=== PATIENT | female | born 1985 | race Caucasian/White ===

== ENCOUNTER 2018-05-29 21:58 | Inpatient (IN) ==
[2018-05-29 22:34] LABS: Bilirubin,Urine Negative (Negative); Blood,Urine Negative (Negative); Color,Urine Yellow (Yellow); Glucose,Urine (UA) Normal (Normal); Ketones,Urine Negative (Negative); Leukocyte Esterase,Urine Negative (Negative); Nitrite,Urine Negative (Negative); Protein,Urine Negative (Neg-Trace); Urobilinogen,Urine Normal (Normal)
[2018-05-29 22:35] LABS: Bacteria,Urine Few per hpf (None-Few); Hyaline Casts,Urine None Seen per lpf (None-Few); RBC,Urine 15-30 per hpf (0-3); Squamous Epithelial Cell,Urine Many per lpf (None-Few)
[2018-05-29 22:37] LABS: Clarity,Urine Hazy (Clear)
[2018-05-29 22:44] LABS: Basophils % 0.4 %; Eosinophils # 0.3 K/mcL (0.0-0.6); Eosinophils % 3.6 %; Hematocrit 39.3 % (35.3-44.9); Hemoglobin 13.1 g/dL (11.5-15.4); Immature Granulocytes % 0.8 % (0-4); Lymphocytes # 2.1 K/mcL (0.6-4.6); Lymphocytes % 23.4 %; Mean Corpuscular HGB Conc 33.3 g/dL (31.6-35.5); Mean Corpuscular Hemoglobin 28.2 pg (28.0-33.3); Mean Corpuscular Volume 84.7 fL (83.0-100.0); Mean Platelet Volume 11.2 fL (9.4-12.4); Monocytes # 0.4 K/mcL (0.0-1.3); Monocytes % 4.6 %; Platelet Count 273 K/mcL (140-400); Red Blood Count 4.64 M/mcL (3.82-4.97); Red Cell Distribution Width 13.4 % (11.5-14.5); Segmented Neutrophils % 67.2 %
[2018-05-29 22:44] LABS: Amphetamine Screen,Urine Negative ng/mL (Cutoff=1000); Barbiturate Screen,Urine Negative ng/mL (Cutoff=200); Benzodiazepines Screen,Urine Negative ng/mL (Cutoff=200); Cannabinoid Screen,Urine Negative ng/mL (Cutoff = 50); Cocaine Screen,Urine Negative ng/mL (Cutoff= 300); Opiate Screen,Urine Negative ng/mL (Cutoff=300); Phencyclidine Screen,Urine Negative ng/mL (Cutoff=25)
--- NOTE | 2018-05-29 22:47 | Emergency Department Note ---
Disposition Clinical Impression: Depression Disposition: Still a Patient Referrals: NONE,PCP [Primary Care Provider] - Forms: ED Satisfaction Letter Time of Disposition: 00:38 General Adult HPI - General Chief complaint: ED Psychiatric Symptoms Stated complaint: si Time Seen by Provider: 05/29/18 22:21 Source: patient Limitations: no limitations Nursing Notes Reviewed: Yes Vital Signs Reviewed: Yes - History of Present Illness HPI Narrative: Patient presents to the emergency department with a chief complaint of suicidal thoughts. Depression. She is accompanied by her . States she is "just sad." Suicidal thoughts. When I asked her what her plan was she states she was going to strain herself with the call light. History of depression but she has never been seen here. Patient states she was doing well on Prozac but does not feel like it is working anymore. Pain Scale: 0 - Related Data Home Medications Medication Instructions Recorded Confirmed Diclofenac Sodium [Voltaren] 50 mg PO Q8HR PRN 05/02/17 05/02/17 FLUoxetine HCl [Prozac] 60 mg PO DAILY 05/02/17 05/02/17 Levothyroxine Sodium [Levo-T] 200 mcg PO 0630 05/02/17 05/02/17 Metoprolol XL (24 HR) Succ [Toprol 50 mg PO DAILY 05/02/17 05/02/17 XL] clonazePAM [Klonopin] 0.5 mg PO TID 05/02/17 05/02/17 Previous Rx's Medication Instructions Recorded HYDROcodone/Acet 10/325 mg [[place] 1 tab PO Q6HR PRN #28 tab 05/02/17 10-325 mg] Oxycodone HCl/Acetaminophen 1 each PO Q6HR #28 tablet 05/02/17 [Percocet 10-325 mg Tablet] Rivaroxaban [Xarelto] 10 mg PO DAILY #21 tablet 05/02/17 Azithromycin [Zithromax] 0 tab PO DAILY #6 tablet 06/01/17 levoFLOXacin [Levofloxacin] 750 mg PO DAILY 7 Days tablet 06/02/17 Allergies Allergy/AdvReac Type Severity Reaction Status Date / Time Penicillins [PCN] Allergy See Verified 05/29/18 22:07 Comments All systems ED: reviewed and negative except as stated. Constitutional: Denies: fever Cardiovascular: Denies: chest pain Gastrointestinal: Denies: abdominal pain, nausea, vomiting Past Medical History - Past Medical History Attestation: Yes The following information was validated with the patient. Source: patient Medical history: Reports: hypertension Psychiatric history: Reports: anxiety, depression - Social History Smoking Status: Current every day smoker Smokeless Tobacco Status: No Alcohol use: Reports: occasionally Drug use: Reports: none Physical Exam Patient awake and alert sitting up in bed tearful. - General Limitations: no limitations General appearance: alert, in no apparent distress - Head Head exam: atraumatic, normocephalic - Eye Eye exam: Present: normal appearance - ENT ENT exam: normal exam, normal oropharynx - Neck Neck exam: Present: normal inspection - Chest Chest inspection: Present: normal inspection - Respiratory Respiratory exam: Present: normal lung sounds bilaterally - Cardiovascular Cardiovascular exam: Present: regular rate, normal rhythm, normal heart sounds - Abdominal Exam Abdominal exam: Present: soft - Neurological Exam Neurological exam: Present: alert, oriented X3, CN II-XII intact - Psychiatric Psychiatric exam: Present: depressed, suicidal ideation - Skin Skin exam: Present: warm, dry Course Course Narrative: Medical clearance and evaluation by 1A. 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 Time: 00:04 Vital Signs Temperature 97.8 F 05/29/18 22:02 Pulse Rate 99 05/29/18 22:02 Respiratory Rate 20 05/29/18 22:02 Blood Pressure 145/103 05/29/18 22:02 O2 Sat by Pulse Oximetry 99 05/29/18 22:02 Temperature 97.8 F 05/29/18 22:02 Pulse Rate 99 05/29/18 22:02 Respiratory Rate 20 05/29/18 22:02 Blood Pressure 145/103 05/29/18 22:02 O2 Sat by Pulse Oximetry 99 05/29/18 22:02 Oxygen Delivery Oxygen Delivery Room Air Medical Decision Making - [facility] Narrative Medical decision making narrative: 00 34 hours: Patient was signed out to me by Dr. Laura See, patient's been depressed feels like her medications are not working. Never been hospitalized. She seen 1A now and then we will disposition once they are evaluation is complete. - Lab Data Result diagrams: 05/29/18 22:29 05/29/18 22:29 Lab Results 10/30/18 10/30/18 10/30/18 Range/Units 22:17 22:17 22:17 WBC (4.3-11.1) K/mcL RBC (3.82-4.97) M/mcL Hgb (11.5-15.4) g/dL Hct (35.3-44.9) % MCV (83.0-100.0) fL MCH (28.0-33.3) pg MCHC (31.6-35.5) g/dL RDW (11.5-14.5) % Plt Count (140-400) K/mcL MPV (9.4-12.4) fL Immature Gran % (0-4) % Seg Neutrophils % % Lymphocytes % % Monocytes % % Eosinophils % % Basophils % % Neutrophils # (1.6-8.9) K/mcL Lymphocytes # (0.6-4.6) K/mcL Monocytes # (0.0-1.3) K/mcL Eosinophils # (0.0-0.6) K/mcL Basophils # (0.0-0.2) K/mcL Sodium (136-145) mEq/L Potassium (3.5-5.1) mEq/L Chloride (98-107) mEq/L Carbon Dioxide (23-29) mEq/L BUN (6-20) mg/dL Creatinine (0.60-1.20) mg/dL Est GFR ( Amer) (> 60) Est GFR (Non-Af Amer) (> 60) BUN/Creatinine Ratio (6-26) Glucose (70-105) mg/dL Calculated Osmolality (280-300) Calcium (8.6-10.3) mg/dL TSH (0.340-5.600) mcIU/mL Urine Color Yellow (Yellow) Urine Clarity Hazy A (Clear) Urine pH 6.0 (5.0-8.0) pH Units Ur Specific [place] 1.010 (1.010-1.025) Urine Protein Negative (Neg-Trace) mg/dL Urine Glucose (UA) Normal (Normal) mg/dL Urine Ketones Negative (Negative) mg/dL Urine Blood Negative (Negative) Urine Nitrite Negative (Negative) Urine Bilirubin Negative (Negative) Urine Urobilinogen Normal (Normal) mg/dL Ur Leukocyte Esterase Negative (Negative) Urine Microscopic RBC 15-30 H (0-3) per hpf Ur Squamous Epith Cells Many H (None-Few) per lpf Urine Bacteria Few (None-Few) per hpf Hyaline Casts None Seen (None-Few) per lpf Urine Test Negative (Negative) Salicylates (15.0-30.0) mg/dL Urine Opiates Screen Negative (Ccrkte=044) ng/mL Acetaminophen (10-20) mcg/mL Ur Barbiturates Screen Negative (Wsptre=962) ng/mL Ur Phencyclidine Scrn Negative (Cutoff=25) ng/mL Ur Amphetamines Screen Negative (Mhmban=7924) ng/mL U Benzodiazepines Scrn Negative (Hcygzn=619) ng/mL Urine Cocaine Screen Negative (Cutoff= 300) ng/mL U Marijuana (THC) Screen Negative (Cutoff = 50) ng/mL Ur Drug Screen Interp See Below Ethyl Alcohol (Less than 10) mg/dL 05/29/18 05/29/18 05/29/18 Range/Units 22:29 22:29 22:29 WBC 9.0 (4.3-11.1) K/mcL RBC 4.64 (3.82-4.97) M/mcL Hgb 13.1 (11.5-15.4) g/dL Hct 39.3 (35.3-44.9) % MCV 84.7 (83.0-100.0) fL MCH 28.2 (28.0-33.3) pg MCHC 33.3 (31.6-35.5) g/dL RDW 13.4 (11.5-14.5) % Plt Count 273 (140-400) K/mcL MPV 11.2 (9.4-12.4) fL Immature Gran % 0.8 (0-4) % Seg Neutrophils % 67.2 % Lymphocytes % 23.4 % Monocytes % 4.6 % Eosinophils % 3.6 % Basophils % 0.4 % Neutrophils # 6.0 (1.6-8.9) K/mcL Lymphocytes # 2.1 (0.6-4.6) K/mcL Monocytes # 0.4 (0.0-1.3) K/mcL Eosinophils # 0.3 (0.0-0.6) K/mcL Basophils # 0.0 (0.0-0.2) K/mcL Sodium 135 L (136-145) mEq/L Potassium 3.7 (3.5-5.1) mEq/L Chloride 106 (98-107) mEq/L Carbon Dioxide 21 L (23-29) mEq/L BUN 7 (6-20) mg/dL Creatinine 0.64 (0.60-1.20) mg/dL Est GFR ( Amer) > 60 (> 60) Est GFR (Non-Af Amer) > 60 (> 60) BUN/Creatinine Ratio 11 (6-26) Glucose 106 H (70-105) mg/dL Calculated Osmolality 278 L (280-300) Calcium 9.2 (8.6-10.3) mg/dL TSH 4.846 (0.340-5.600) mcIU/mL Urine Color (Yellow) Urine Clarity (Clear) Urine pH (5.0-8.0) pH Units Ur Specific [place] (1.010-1.025) Urine Protein (Neg-Trace) mg/dL Urine Glucose (UA) (Normal) mg/dL Urine Ketones (Negative) mg/dL Urine Blood (Negative) Urine Nitrite (Negative) Urine Bilirubin (Negative) Urine Urobilinogen (Normal) mg/dL Ur Leukocyte Esterase (Negative) Urine Microscopic RBC (0-3) per hpf Ur Squamous Epith Cells (None-Few) per lpf Urine Bacteria (None-Few) per hpf Hyaline Casts (None-Few) per lpf Urine Test (Negative) Salicylates < 2.5 L (15.0-30.0) mg/dL Urine Opiates Screen (Dbupwc=742) ng/mL Acetaminophen < 10 L (10-20) mcg/mL Ur Barbiturates Screen (Clzkkj=289) ng/mL Ur Phencyclidine Scrn (Cutoff=25) ng/mL Ur Amphetamines Screen (Coyjxx=3591) ng/mL U Benzodiazepines Scrn (Cheoru=488) ng/mL Urine Cocaine Screen (Cutoff= 300) ng/mL U Marijuana (THC) Screen (Cutoff = 50) ng/mL Ur Drug Screen Interp Ethyl Alcohol < 10 (Less than 10) mg/dL
[2018-05-29 23:04] LABS: Acetaminophen < 10 mcg/mL (10-20); BUN/Creatinine Ratio 11 (6-26); Blood Urea Nitrogen 7 mg/dL (6-20); Calcium 9.2 mg/dL (8.6-10.3); Carbon Dioxide 21 mEq/L (23-29); Chloride 106 mEq/L (98-107); Ethanol < 10 mg/dL (Less than 10); Glucose 106 mg/dL (70-105); Osmolality,Calculated 278 (280-300); Potassium 3.7 mEq/L (3.5-5.1); Salicylate < 2.5 mg/dL (15.0-30.0); Sodium 135 mEq/L (136-145); eGFR For Non-African Americans > 60 (> 60)
[2018-05-30] MEDS ORDERED: traZODone 50 MG TABLET PO PRN (00:51)
[2018-05-30] MEDS ORDERED: Mag Hydrox/Al Hydrox/Simeth 30 ML UDC PO PRN (00:51)
[2018-05-30] MEDS ORDERED: MOM Conc 10 ML UD.LIQ PO PRN (00:51)
[2018-05-30] MEDS ORDERED: hydrOXYzine pamoate 25 MG CAPSULE PO PRN (00:51)
[2018-05-30] MEDS ORDERED: *HR* LORazepam 1 MG TABLET PO PRN (00:51)
[2018-05-30] MEDS ORDERED: Haloperidol Lactate 5 MG/ML VIAL IM PRN (00:51)
[2018-05-30] MEDS ORDERED: *HR* LORazepam 2 MG/ML VIAL IM PRN (00:51)
[2018-05-30] MEDS: Nicotine 21 MG PATCH.TD24 TD SCH (08:48)
--- NOTE | 2018-05-30 12:13 | Psychiatry History & Physical ---
Date of Encounter: 05/30/18 Time of Encounter: 11:20 History of Present Illness Medicare Admission Attestation: For traditional Medicare patients the provided hospital inpatient services are reasonable and necessary and in the case of services not specified as inpatient-only under 42 CFR 419.22 (n), that they are appropriately provided as inpatient services in accordance 42 CFR 412.3. For Critical Access Hospital the patient may reasonably be expected to be discharged or transferred to a hospital within 96 hours after admission to the Critical Access Hospital. Admitted From: Home Plans for Post Hospital Care: Home History of Present Illness: Pt is a 32 yo, , female, marriedx1, with 3 children (17,12,5)who presents for mood and depression to the emergency department. Pt noted thoughts that she wants to kill myself, Pt noted she felt safe and comfortable on the unit. Pt was in agreement with treatment plan. Pt noted that she is doing better today. Pt noted she slept 8-10 hours last night. Pt noted her appetite is reduced. Pt rated her depression a 10, on a scale of zero to ten with ten being the worst and zero being none. Pt rate her anxiety a 7, on the same scale. Pt denied any current visual or auditory hallucinations. Pt denied any thoughts to harm herself or anyone else. Pt noted she has her own home in [place], [place]. Pt noted that her highest level of education is Associates in Nursing. 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 Pt denied any previous inpt psychiatric hospitalizations. Pt denid any previous suicide attempts. Pt noted her mother completed suicide 5 Young's ago. PT noted her brother and fathaer have mood D/O or Bipolar D/O. PT agreed to start abilify 5 mg for medication management of Depression. Pt was educated on the risks benefits and side-effects of these medications including no medication, pt was in agreement. Pt denied any hx of TBI, Hep C, HIV or seizures. 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 5.Supportive therapy was provided 6.Pt encouraged to consider group or individual therapy 7.Pt was in agreement with treatment plan. 8.Pt was educated on the risks benefits and side effects of current medications. Past Med Surg Social Fam HX - Past Medical History Medical history: hypertension, thyroid disease - Past Psychiatric History Psychiatric history: Reports: depression Family psychiatric history: Yes Family History of Suicide: Completed (Mother) - Social History Smoking Status: Current every day smoker Smokeless Tobacco Status: No Alcohol use: occasionally Drug use: none Medications & Allergies Diclofenac Sodium [Voltaren] 50 mg PO Q8HR PRN 05/02/17 [History] FLUoxetine HCl [Prozac] 60 mg PO DAILY 05/02/17 [History] Metoprolol XL (24 HR) Succ [Toprol XL] 50 mg PO DAILY 05/02/17 [History] Rivaroxaban [Xarelto] 10 mg PO DAILY #21 tablet 05/02/17 [Rx] clonazePAM [Klonopin] 0.5 mg PO TID 05/02/17 [History] Levothyroxine [Synthroid] 150 mcg PO DAILY 05/30/18 [History] Allergy/AdvReac Type Severity Reaction Status Date / Time Penicillins [PCN] Allergy See Verified 05/29/18 22:07 Comments Review of Systems Constitutional: Denies: fever, chills, weakness, weight change Eyes: Denies: eye pain, vision change Ears, Nose, Throat: Denies: ear pain, throat pain, dental pain, hearing loss, congestion Cardiovascular: Denies: chest pain, palpitations, dyspnea on exertion Respiratory: Denies: cough, dyspnea, wheezes Gastrointestinal: Denies: abdominal pain, nausea, vomiting, diarrhea, constipation Genitourinary female: Denies: urgency, dysuria, frequency, abnormal menses, dyspareunia Musculoskeletal: Denies: joint swelling, joint pain Integumentary: Denies: rash, lesions, pruritus Neurological: Denies: headache, weakness, numbness, memory loss Psychiatric: Reports: depression, suicidal ideation Endocrine: Denies: fatigue, heat or cold intolerance Hematologic/Lymphatic: Denies: easy bruising, lymphadenopathy Allergic/Immunologic: Denies: urticaria, itchy eyes Exam - HEENT Head exam IM: Present: atraumatic Eye exam IM: Present: EOMI, normal appearance, PERRL ENT exam IM: Present: normal exam - Neurological Neurological exam: Present: CN II-XII intact - Respiratory Respiratory exam IM: Present: CTAB - GI/Abdominal GI/Abdominal exam IM: Present: normal bowel sounds, soft. Absent: tenderness - Extremities Extremities exam IM: Present: full ROM - Skin Skin exam IM: Present: dry, warm - Constitutional Vitals: Temp Pulse Resp BP Pulse Ox 96.7 F L 101 14 154/120 100 05/30/18 09:00 05/30/18 09:00 05/30/18 09:00 05/30/18 09:00 05/30/18 09:00 General appearance: age & developmentally appropriate, well-groomed, well- nourished - Musculoskeletal Gait: normal Station: relaxed Strength & Tone: normal for patient - Psychiatric Patient Orientation: Yes Person, Yes Time, Yes Place Level of alertness: Alert Behavior: calm, cooperative Psychomotor activity: Normal Eye Contact: Maintains Eye Contact Mood Description: Depressed Affect description: congruent with mood, dysphoric Speech Volume: Normal Speech pattern: normal rate, normal rhythm, normal tone, fluent, spontaneous Language & Vocabulary: consistent with education Thought Process: Linear, Goal Oriented Thought Content: Yes Suicidal ideation, No Homicidal ideation, No Overt delusions Perceptual Disturbances: No Auditory hallucinations, No Visual hallucinations Attention Span Ability: Capable of Focused Attention Memory Description: Grossly Intact Patient Reliability: Reliable Historian Fund of knowledge: Yes abstraction ability, Yes average, Yes aware of current events Intelligence Estimate: Average Judgment: Limited Insight: Partial Results - Drug Levels and Toxicology Drug Levels and Toxicology: Drug Levels and Toxicity 05/29/18 05/29/18 22:17 22:29 Urine Opiates Screen Negative Acetaminophen < 10 L Ur Barbiturates Screen Negative Ur Phencyclidine Scrn Negative Ur Amphetamines Screen Negative U Benzodiazepines Scrn Negative Urine Cocaine Screen Negative U Marijuana (THC) Screen Negative Ethyl Alcohol < 10 - Labs Labs: Laboratory Last Values WBC 9.0 K/mcL (4.3-11.1) 05/29/18 22:29 RBC 4.64 M/mcL (3.82-4.97) 05/29/18 22:29 Hgb 13.1 g/dL (11.5-15.4) 05/29/18 22:29 Hct 39.3 % (35.3-44.9) 05/29/18 22:29 MCV 84.7 fL (83.0-100.0) 05/29/18 22: MCH 28.2 pg (28.0-33.3) 05/29/18: MCHC 33.3 g/dL (31.6-35.5) 05/29/18 22: RDW 13.4 % (11.5-14.5) 05/29/18 22: Plt Count 273 K/mcL (140-400) 05/29/18 22: MPV 11.2 fL (9.4-12.4) 05/29/18: Immature Gran % 0.8 % (0-4) 05/29/18: Seg Neutrophils % 67.2 % 05/29/18: Lymphocytes % 23.4 % 05/29/18: Monocytes % 4.6 % 05/29/18 22: Eosinophils % 3.6 % 05/29/18: Basophils % 0.4 % 05/29/18: Neutrophils # 6.0 K/mcL (1.6-8.9) 05/29/18 22: Lymphocytes # 2.1 K/mcL (0.6-4.6) 05/29/18 22: Monocytes # 0.4 K/mcL (0.0-1.3) 05/29/18: Eosinophils # 0.3 K/mcL (0.0-0.6) 05/29/18 22: Basophils # 0.0 K/mcL (0.0-0.2) 05/29/18 22: Sodium 135 mEq/L (136-145) L 05/29/18 22: Potassium 3.7 mEq/L (3.5-5.1) 05/29/18 22: Chloride 106 mEq/L (98-107) 05/29/18 22: Carbon Dioxide 21 mEq/L (23-29) L 05/29/18 22: BUN 7 mg/dL (6-20) 05/29/18 22: Creatinine 0.64 mg/dL (0.60-1.20) 05/29/18 22:29 Est GFR ( Amer) > 60 (> 60) 05/29/18 22:29 Est GFR (Non-Af Amer) > 60 (> 60) 05/29/18 22:29 BUN/Creatinine Ratio 11 (6-26) 05/29/18 22:29 Glucose 106 mg/dL (70-105) H 05/29/18 22:29 Calculated Osmolality 278 (280-300) L 05/29/18 22:29 Calcium 9.2 mg/dL (8.6-10.3) 05/29/18 22:29 TSH 4.846 mcIU/mL (0.340-5.600) 05/29/18 22: Urine Color Yellow (Yellow) 05/29/18 22:17 Urine Clarity Hazy (Clear) A 05/29/18 22: Urine pH 6.0 pH Units (5.0-8.0) 05/29/18: Ur Specific [place] 1.010 (1.010-1.025) 05/29/18 22: Urine Protein Negative mg/dL (Neg-Trace) 05/29/18 22:17 Urine Glucose (UA) Normal mg/dL (Normal) 05/29/18 22:17 Urine Ketones Negative mg/dL (Negative) 05/29/18 22:17 Urine Blood Negative (Negative) 05/29/18 22:17 Urine Nitrite Negative (Negative) 05/29/18 22:17 Urine Bilirubin Negative (Negative) 05/29/18: Urine Urobilinogen Normal mg/dL (Normal) 05/29/18 22:17 Ur Leukocyte Esterase Negative (Negative) 05/29/18 22:17 Urine Microscopic RBC 15-30 per hpf (0-3) H 05/29/18 22:17 Ur Squamous Epith Cells Many per lpf (None-Few) H 05/29/18 22:17 Urine Bacteria Few per hpf (None-Few) 05/29/18 22:17 Hyaline Casts None Seen per lpf (None-Few) 05/29/18 22:17 Urine Test Negative (Negative) 05/29/18 22:17 Salicylates < 2.5 mg/dL (15.0-30.0) L 05/29/18 22:29 Urine Opiates Screen Negative ng/mL (Tphqdw=486) 05/29/18 22:17 Acetaminophen < 10 mcg/mL (10-20) L 05/29/18 22:29 Ur Barbiturates Screen Negative ng/mL (Hiizok=589) 05/29/18 22:17 Ur Phencyclidine Scrn Negative ng/mL (Cutoff=25) 05/29/18 22:17 Ur Amphetamines Screen Negative ng/mL (Quivfg=4554) 05/29/18 22:17 U Benzodiazepines Scrn Negative ng/mL (Woblul=779) 05/29/18 22:17 Urine Cocaine Screen Negative ng/mL (Cutoff= 300) 05/29/18 22:17 U Marijuana (THC) Screen Negative ng/mL (Cutoff = 50) 05/29/18 22:17 Ur Drug Screen Interp See Below 05/29/18 22:17 Ethyl Alcohol < 10 mg/dL (Less than 10) 05/29/18 22:29 Assessment and Plan (1) Suicidal ideation Current visit: Yes Status: Acute Plan: Admit inpatient for safety and stabilization Risks, benefits, side effects, alternatives discussed w/pt: Yes Patient agreeable to treatment: Yes Plans for Post Hospital Care: at Medical Facility (2) Depression Current visit: Yes Status: Acute Plan: Admit inpatient for safety and stabilization Risks, benefits, side effects, alternatives discussed w/pt: Yes Patient agreeable to treatment: Yes Plans for Post Hospital Care: at Home Qualifiers: Depression Type: major depressive disorder Major depression recurrence: single episode Active/Remission status: currently active Major depression episode severity: severe Psychotic features: without psychotic features Qualified Code(s): F32.2 - Major depressive disorder, single episode, severe without psychotic features
[2018-05-30] MEDS: Metoprolol XL (24 HR) Succ 50 MG TAB.ER.24H PO SCH (13:07)
[2018-05-30] MEDS: clonazePAM 0.5 MG TABLET PO PRN ×2 (13:47→20:22)
[2018-05-30] MEDS ORDERED: clonazePAM 0.5 MG TABLET PO SCH (15:00)
[2018-05-30] MEDS ORDERED: ARIPiprazole 5 MG TABLET PO SCH (21:00)
[2018-05-31] MEDS: clonazePAM 0.5 MG TABLET PO PRN ×3 (04:04→20:14)
[2018-05-31] MEDS: Ibuprofen 400 MG TABLET PO PRN ×3 (04:06→16:47)
[2018-05-31] MEDS: FLUoxetine 20 MG CAPSULE PO SCH (08:32)
[2018-05-31] MEDS: Nicotine 21 MG PATCH.TD24 TD SCH (08:32)
[2018-05-31] MEDS: Metoprolol XL (24 HR) Succ 50 MG TAB.ER.24H PO SCH (08:32)
--- NOTE | 2018-05-31 11:03 | Psychiatry Progress Note ---
Date of Encounter: 05/31/18 Time of Encounter: 10:45 Subjective Interval history: Pt is a 32 yo, , female, marriedx1, with 3 children (17,12,5)who presents for mood and depression to the emergency department. Pt noted thoughts that she wants to kill myself, upon admission Pt noted she felt safe and comfortable on the unit. Pt was in agreement with treatment plan. Pt encouraged to participate in group and individual therapy. Pt noted that she is doing better today. Pt noted she slept 8-10 hours last night. Pt noted her appetite is reduced. Pt rated her depression a 6, on a scale of zero to ten with ten being the worst and zero being none. Pt rate her anxiety a 8, on the same scale. Pt denied any current visual or auditory hallucinations. Pt denied any thoughts to harm herself or anyone else. Pt denied any hx of TBI, Hep C, HIV or seizures. No TD noted, AIMS=0 1.Interval hx 2.Continue current medications 3.Review current labs 4.Pt had an opportunity to ask questions and discuss current treatment plan. 5.Supportive therapy was provided 6.Pt encouraged to consider group or individual therapy 7.Pt was in agreement with treatment plan. 8.Pt was educated on the risks benefits and side effects of current medications. 9. PT agreed to increase abilify to 5 mg PO QHS for mood. Review of Systems Constitutional: Denies: fever, chills, weakness, weight change Eyes: Denies: eye pain, vision change Ears, Nose, Throat: Denies: ear pain, throat pain, dental pain, hearing loss, congestion Cardiovascular: Denies: chest pain, palpitations, dyspnea on exertion Respiratory: Denies: cough, dyspnea, wheezes Gastrointestinal: Denies: abdominal pain, nausea, vomiting, diarrhea, constip ation Musculoskeletal: Denies: joint swelling, joint pain Neurological: Denies: headache, weakness, numbness, memory loss Psychiatric: Reports: depression, suicidal ideation Results - Vital Signs Vital Signs: Temp Pulse Resp BP Pulse Ox 97.5 F L 72 20 129/95 100 05/31/18 09:00 05/31/18 09:00 05/31/18 09:00 05/31/18 09:00 05/31/18 09:00 Assessment and Plan (1) Suicidal ideation Current visit: Yes Status: Acute Plan: Continue hospitalization, Close observation, Suicide Precautions per unit protocol, Encourage participation in unit milieu, Group Therapy, Monitor sleep, Monitor appetite Risks, benefits, side effects, alternatives discussed w/pt: Yes Patient agreeable to treatment: Yes (2) Depression Current visit: Yes Status: Acute Plan: Continue hospitalization, Close observation, Suicide Precautions per unit protocol, Encourage participation in unit milieu, Group Therapy, Monitor sleep, Monitor appetite Risks, benefits, side effects, alternatives discussed w/pt: Yes Patient agreeable to treatment: Yes Qualifiers: Depression Type: major depressive disorder Major depression recurrence: single episode Active/Remission status: currently active Major depression episode severity: severe Psychotic features: without psychotic features Qualified Code(s): F32.2 - Major depressive disorder, single episode, severe without psychotic features Consult Discharge Plan - Plan Referrals: [facility] [Outside] - 06/29/18 10:40 am (The above appointment is with Dr. Aguilar for outpatient psychiatric assessment and medication management services. Please arrive 10 minutes early to complete the check-in process. Please bring your insurance card (or [facility] award letter) and photo ID. If you are unable to keep this appointment, 24 hour business notice of cancellation is expected. If you miss your new patient appointment with any provider without providing appropriate notice, you cannot be re-scheduled for that service. The above appointment(s) reflects first availability. You may contact the office regularly to check for cancellations that may allow you to be seen sooner. The [facility] is the 1st building behind [facility] in [place], [place]. Please do not use GPS or mapping apps to locate the office, as they will take you to the wrong location. ) [facility] [Outside] Psychiatry Exam - Constitutional Vitals: Temp Pulse Resp BP Pulse Ox 97.5 F L 72 20 129/95 100 05/31/18 09:00 05/31/18 09:00 05/31/18 09:00 05/31/18 09:00 05/31/18 09:00 General appearance: age & developmentally appropriate, well-groomed, well- nourished - Musculoskeletal Gait: normal Station: relaxed Strength & Tone: normal for patient - Psychiatric Patient Orientation: Yes Person, Yes Time, Yes Place Level of alertness: Alert Behavior: calm, cooperative, withdrawn Psychomotor activity: Normal Eye Contact: Maintains Eye Contact Mood Description: Depressed Affect description: congruent with mood, dysphoric Speech Volume: Normal Speech pattern: normal rate, normal rhythm, normal tone, fluent, spontaneous Language & Vocabulary: consistent with education Thought Process: Linear, Goal Oriented Thought Content: No Suicidal ideation, No Homicidal ideation, No Overt delusions Perceptual Disturbances: No Auditory hallucinations, No Visual hallucinations Attention Span Ability: Capable of Focused Attention Memory Description: Grossly Intact Patient Reliability: Reliable Historian Fund of knowledge: Yes abstraction ability, Yes aware of current events Intelligence Estimate: Average Judgment: Limited Insight: Partial
[2018-05-31] MEDS ORDERED: rOPINIRole 1 MG TABLET PO SCH (21:00)
[2018-05-31] MEDS ORDERED: ARIPiprazole 5 MG TABLET PO SCH (21:00)
[2018-06-01] MEDS: Ibuprofen 400 MG TABLET PO PRN ×2 (02:10→08:18)
[2018-06-01] MEDS: FLUoxetine 20 MG CAPSULE PO SCH (08:18)
[2018-06-01] MEDS: Metoprolol XL (24 HR) Succ 50 MG TAB.ER.24H PO SCH (08:19)
[2018-06-01] MEDS: Nicotine 21 MG PATCH.TD24 TD SCH (09:10)
[2018-06-01 10:06] VITALS: BP 130/89
--- NOTE | 2018-06-01 10:22 | Discharge Summary ---
Date of Encounter: 06/01/18 Time of Encounter: 10:00 Diagnosis - Discharge Diagnosis (1) Suicidal ideation Status: Acute (2) Depression Status: Acute Qualifiers: Depression Type: major depressive disorder Major depression recurrence: single episode Active/Remission status: currently active Major depression episode severity: severe Psychotic features: without psychotic features Qualified Code(s): F32.2 - Major depressive disorder, single episode, severe without psychotic features Medications - Discharge Medications Prescriptions: Diclofenac Sodium [Voltaren] 50 mg PO Q8HR PRN 30 Days #30 tablet.dr OLIVAREZ Reason: Pain ARIPiprazole [Abilify] 10 mg PO HS 30 Days #30 tablet clonazePAM [Klonopin] 0.5 mg PO TID 30 Days #90 tablet FLUoxetine HCl [Prozac] 80 mg PO DAILY 30 Days #30 capsule Levothyroxine [Synthroid] 150 mcg PO DAILY 30 Days #30 tablet Metoprolol XL (24 HR) Succ [Toprol Xl] 50 mg PO DAILY 30 Days #30 tab.er.24h Rivaroxaban [Xarelto] 10 mg PO DAILY #21 tablet rOPINIRole [Requip] 1 mg PO HS 30 Days #30 tablet ARIPiprazole [Abilify] 10 mg PO HS 30 Days #30 tablet 06/01/18 [Rx] Diclofenac Sodium [Voltaren] 50 mg PO Q8HR PRN 30 Days #30 tablet. 06/01/18 [Rx] FLUoxetine HCl [Prozac] 80 mg PO DAILY 30 Days #30 capsule 06/01/18 [Rx] Levothyroxine [Synthroid] 150 mcg PO DAILY 30 Days #30 tablet 06/01/18 [Rx] Metoprolol XL (24 HR) Succ [Toprol Xl] 50 mg PO DAILY 30 Days #30 tab.er.24h 06/01/18 [Rx] Rivaroxaban [Xarelto] 10 mg PO DAILY #21 tablet 06/01/18 [Rx] clonazePAM [Klonopin] 0.5 mg PO TID 30 Days #90 tablet 06/01/18 [Rx] rOPINIRole [Requip] 1 mg PO HS 30 Days #30 tablet 06/01/18 [Rx] Allergy/AdvReac Type Severity Reaction Status Date / Time Penicillins [PCN] Allergy See Verified 05/29/18 22:07 Comments Results Procedures and tests throughout hospitalization: Completed Lab Orders Category Date Time Status Acetaminophen Stat Lab 05/29/18 22:29 Completed Basic Metabolic Panel Stat Lab 05/29/18 22:29 Completed Complete Blood Count [HEME] Stat Lab 05/29/18 22:29 Completed Drug Screen, Urine [UCHEM] Stat Lab 05/29/18 22:17 Completed Ethanol Stat Lab 05/29/18 22:29 Completed Test Result, Urine [URIN] Stat Lab 05/29/18 22:17 Completed Salicylate Stat Lab 05/29/18 22:29 Completed TSH [Thyroid Stimulating Hormone] Stat Lab 05/29/18 22:29 Completed Urinalysis reflex Microscopic [URIN] Stat Lab 05/29/18 22:17 Completed Provider Date of admission: 05/30/18 00:44 Primary care physician: PCP NONE Discharging clinician: Raul Ballesteros Psychiatry Exam - Constitutional Vitals: Temp Pulse Resp BP Pulse Ox 97.3 F L 70 22 130/89 98 06/01/18 09:30 06/01/18 09:30 06/01/18 09:30 06/01/18 09:30 06/01/18 09:30 General appearance: age & developmentally appropriate, well-groomed, well- nourished - Musculoskeletal Gait: normal Station: relaxed Strength & Tone: normal for patient - Psychiatric Patient Orientation: Yes Person, Yes Time, Yes Place Level of alertness: Alert Behavior: calm, cooperative Psychomotor activity: Normal Eye Contact: Maintains Eye Contact Mood Description: Euthymic/stable Affect description: congruent with mood, full range Speech Volume: Normal Speech pattern: normal rate, normal rhythm, normal tone, fluent, spontaneous Language & Vocabulary: consistent with education Thought Process: Linear, Goal Oriented Thought Content: No Suicidal ideation, No Homicidal ideation, No Overt delusions Perceptual Disturbances: No Auditory hallucinations, No Visual hallucinations Attention Span Ability: Capable of Focused Attention Memory Description: Grossly Intact Patient Reliability: Reliable Historian Fund of knowledge: Yes abstraction ability, Yes aware of current events Intelligence Estimate: Average Judgment: Limited Insight: Partial Hospital Course Hospital course: Pt is a 32 yo, , female, marriedx1, with 3 children (17,12,5)who presents for mood and depression to the emergency department. Pt noted thoughts that she wants to kill myself, upon admission Pt noted she felt safe and comfortable on the unit. Pt was in agreement with treatment plan. Pt encouraged to participate in group and individual therapy. Pt noted that she is doing better today. Pt noted she slept 8-10 hours last night. Pt noted her appetite is reduced. Pt rated her depression a 1, on a scale of zero to ten with ten being the worst and zero being none. Pt rate her anxiety a 2, on the same scale. Pt denied any current visual or auditory hallucinations. Pt denied any thoughts to harm herself or anyone else. Pt is noted she felt safe and comfortable for D/C home. Patient noted a significant reeducation in her depression and anxiety during her stay at [facility]. Pt noted that she slowly improved to the point that she was comfortable and safe to D/C home. Pt noted she felt her medications were working well and denied any current side effects. Treatment team encouraged Pt to stay out of bed and try to find activities to do, verbalized understanding. pt reported that she felt safe on the unit and comfortable for Home with her mother. Pt Denied suicidal/homicidal ideations, denied any problems or concerns with medications or side effects. PT voiced progression towards treatment goals and was offered a copy of updated treatment plan completed during visit today. Denied any immediate needs or concerns. Pt denied any access to guns or weapons Pt throughout her stay on in psych pt felt like her medications were working and felt comfortable being discharged on these medications. Pt was advised to take all medications as prescribed, follow up with all scheduled appointments and abstain from any alcohol or illicit substances. Pt was in agreement. Pt felt safe and comfortable to be discharged to her home and follow up with out mental health. Pt was very optimistic about her D/C. Pt felt safe and comfortable for D/C. Pt stated that she was doing "good," today. Pt stated that she slept "about 8 hours," last night. Pt stated that her appetite is "good." Pt stated that she rates her depression a "1," on a scale of 0-10 with 10 being the worst and 0 being none. Pt stated that she rates her anxiety an "2/10," on the same scale. Pt denies any auditory or visual hallucinations. Pt denied any thoughts to harm herself or anyone else. Pt felt safe and comfortable for D/C. The patient was educated primarily by verbal means about her diagnoses and their manifestations in her life. The option for treatment including group individual therapy programming was offered to her and the use of medications with all their potential risks, benefits, and side-effects were discussed with the pt at length. Pt was given the opportunity to ask questions and she participated in the treatment and planning process. Pt felt ready and eager to be discharged from the from the [facility] to be dishcarged home. Pt felt she was safe for this disposition. Pt was considered to be able to participate in informed consent and decision-making with respect to medical, legal and financial issues at the time of her discharge from the [facility]. No TD noted, AIMS=0 1.Interval hx 2.Continue current medications 3.Review current labs 4.Pt had an opportunity to ask questions and discuss current treatment plan. 5.Supportive therapy was provided 6.Pt encouraged to consider group or individual therapy 7.Pt was in agreement with treatment plan. 8.Pt was educated on the risks benefits and side effects of current medications. 9. take all medications as prescribed 10 abstain from any alcohol or illict substances. 11. follow up with all sheduled appointments. 12. D/C Pt home Time spent discussing smoking cessation with patient: 3 to 10 minutes Does patient wish to continue nicotine replacement upon disc: No - Time Spent with Patient Total time spent providing and/or coordinating discharge services: Greater than 30 minutes Assessment and Plan - Patient/Caregiver Discharge Instructions Activity: resume usual activities as tolerated Diet: regular diet - Follow up Plan Follow up with: [facility] [Outside] - 06/29/18 10:40 am (The above appointment is with Dr. Aguilar for outpatient psychiatric assessment and medication management services. Please arrive 10 minutes early to complete the check-in process. Please bring your insurance card (or [facility] award letter) and photo ID. If you are unable to keep this appointment, 24 hour business notice of cancellation is expected. If you miss your new patient appointment with any provider without providing appropriate notice, you cannot be re-scheduled for that service. The above appointment(s) reflects first availability. You may contact the office regularly to check for cancellations that may allow you to be seen sooner. The [facility] is the 1st building behind [facility] in [place], [place]. Please do not use GPS or mapping apps to locate the office, as they will take you to the wrong location. ) [facility] [Outside] - 06/07/18 12:30 pm (The above appointment is with Brendan Ruelas for outpatient mental health counseling services.) Overall status at discharge: Stable Disposition: Home, Self-Care Quality - Multiple Antipsychotics Patient discharged on 2 or more antipsychotic medications: No - Justification Documentation of: Other justification (pt currently only on one antipsychotic) Procedures - Procedures Procedures: Medication Management, Crisis Stabilization, Supportive Therapy, Group Therapy, Psychoeducational Therapy
[2018-06-01] MEDS: clonazePAM 0.5 MG TABLET PO PRN (10:33)
== END 2018-06-01 12:00 | disposition home or self-care (01) | DRG 885 ==
LOC: EMEROOARM 21:58 → 1ANU 05-30 00:44
PROVIDERS: ADMIT General Practice; ATTEND General Practice